=== PATIENT | female | born 2000 | race Hispanic/Latino ===

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

== ENCOUNTER 2020-04-03 12:52 | Emergency (ER) | payer OTHER ==
[2020-04-03 13:44] LABS: ALT (SGPT) 24 U/L (8-55); AST (SGOT) 18 U/L (5-30); Albumin 4.4 g/dL (3.5-5.0); Alkaline Phosphatase 108 U/L (40-100); Anion Gap 18 mmol/L (10-20); BUN (Urea Nitrogen) 14 mg/dL (8.4-21.0); Bilirubin, Total 0.4 mg/dL (0.2-1.2); Calc. Creatinine Clearance 0 mL/min (70-130); Calcium 9.4 mg/dL (7.8-10.44); Carbon Dioxide 20 mmol/L (22-29); Chloride 100 mmol/L (98-107); Globulin 4.1 g/dL (2.4-3.5); Glucose 326 mg/dL (70-105); Lipase 23 U/L (8-78); Potassium 3.9 mmol/L (3.5-5.1); Protein, Total 8.5 g/dL (6.0-8.3); Sodium 134 mmol/L (136-145)
[2020-04-03 14:06] LABS: #Basophils 0.1 thou/uL (0.0-0.2); #Eosinphils 0.1 thou/uL (0.0-0.7); #Lymphocytes 3.9 thou/uL (1.20-3.40); #Neutrophils 9.8 thou/uL (1.40-6.50); %Basophils 0.9 % (0.0-1.0); %Eosinophils 0.7 % (0.0-10.0); %Lymphocytes 26.2 % (28.0-48.0); %Monocytes 6.6 % (0.0-4.0); %Neutrophils 65.5 % (31.0-61.0); Mean Corpuscular HGB CONC 34.3 g/dL (32.0-36.0); Mean Corpuscular Hemoglobin 29.2 pg (25.0-35.0); Mean Platelet Volume 8.9 fL (7.4-10.4); Platelet Count 348 thou/uL (130-400); RBC Distribution Width 11.7 % (11.5-14.5); Red Blood Cell (RBC) Count 5.49 mill/uL (4.00-5.20); White Blood Cell (WBC) Count 14.9 thou/uL (4.8-10.8)
[2020-04-03 14:06] LABS: Bilirubin Negative (Negative); Blood, Urine Negative (Negative); Clarity Turbid (Clear); Glucose, Urine (Dipstick) Greater than 1000 mg/dL (Negative); Ketone, Urine Greater than 150 mg/dL (Negative); Leukocyte 75 Leu/uL (Negative); Nitrite Negative (Negative); Protein, Urine (Dipstick) 100 mg/dL (Neg-Trace); Specific Gravity, Urine 1.049 (1.002-1.036); Urobilinogen Normal mg/dL (Less than 2); pH, Urine 5.5 (5.0-9.0)
[2020-04-03 14:17] LABS: RBC/HPF 0-3 HPF (0-3)
[2020-04-03 14:18] LABS: Bacteria/HPF 2+ HPF (None Seen); Yeast-Budding 2+ HPF (None Seen)
[2020-04-03 14:19] LABS: BHCG - Serum Negative (NEGATIVE); Pregs Control Background? CLEAR/WHITE (CLR/WHITE); Pregs Control Bar Appear? YES (CONTROL BAR)
--- NOTE | 2020-04-03 15:09 | ULT ---
Exam: Right upper quadrant ultrasound: HISTORY: Right upper quadrant abdominal pain COMPARISON: None FINDINGS: Liver: Within normal limits Gallbladder: No evidence of gallbladder calculi, gallbladder wall thickening, or pericholecystic flui d. Common bile duct: The common duct is normal in caliber measuring 0.47 in diameter. Pancreas: Limited visualized portions of the pancreas demonstrate a normal sonographic appearance. Right kidney: Right kidney demonstrates a normal sonographic appearance. The right kidney measures 1 3.4 cm in length. IVC: The visualized IVC demonstrates a normal sonographic appearance. IMPRESSION: Right upper quadrant ultrasound is within normal limits, and no gallbladder calculi are seen.
[2020-04-03] MEDS ORDERED: cefTRIAXone\\ROCEPHIN 1 GM VIAL ONE (15:29)
[2020-04-03] MEDS ORDERED: Morphine 4 MG/ML VIAL ONE (15:29)
--- NOTE | 2020-04-03 16:34 | CT ---
EXAM: CT ABDOMEN AND PELVIS HISTORY: Abdominal pain. Nausea vomiting and diarrhea. COMPARISON: None. Procedure: Multiple contiguous axial images were obtained and a CT of the abdomen and pelvis with IV contrast. C oronal reformats were performed. FINDINGS: Lower Chest: Dependent atelectatic change Vessels: Normal caliber aorta. No periaortic fat stranding Heart: Normal heart size. No significant pericardial fluid Abdomen: Portal vein:Patent Gallbladder: No calcified gallstones. Normal caliber wall. Liver: within normal limits. Pancreas: within normal limits. Spleen: within normal limits. Adrenals: within normal limits. Kidneys: Symmetric enhancement. No obstructive uropathy. Peritoneum: No ascites or free air, no fluid collection. Bowel: Limited evaluation due to the lack of oral contrast administration. No evidence of bowel obstr uction. Ileocecal junction is unremarkable. Normal caliber retrocecal appendix. Scattered fecal material in a nondistended, nondilated colon. Mesentery and Retroperitoneum: No enlarged mesenteric or retroperitoneal lymph nodes. Abdominal Wall: within normal limits. Pelvis: Reproductive Organs: Uterus and left adnexa is unremarkable. 1.8 x 1.0 cm hypodensity in the right ad nexa, compatible with a adnexal cyst. Pelvis: No mass, lymphadenopathy, free air or free fluid. Bladder: within normal limits. Bones: No lytic or blastic lesions. 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 IMPRESSION: 1. No acute abnormality in the abdomen or pelvis 2. Normal caliber retrocecal appendix 3. Right ovarian cyst. Follow-up ultrasound in 8 weeks to ensure resolution.
[2020-04-03] MEDS ORDERED: Ketorolac Tromethamine 30 MG/ML VIAL ONE (16:44)
[2020-04-03] MEDS ORDERED: Acetaminophen 325 MG TAB ONE (18:01)
== END 2020-04-03 18:10 | disposition home or self-care (01) ==
LOC: ERS 12:52
DX: N10 Acute pyelonephritis (principal); E10.9 Type 1 diabetes mellitus without complications
CPT/HCPCS: 36415; 74177; 76705; 80053; 81003; 81015; 83605; 83690; 84703; 85025; 87040; 87086; 94760; 96365; 96375; J0696; J1885; J2270

== ENCOUNTER 2022-05-05 12:26 | Emergency (ER) | payer OTHER ==
[2022-05-05] MEDS ORDERED: Lidocaine 1% w/Epinephrine 1:100K 20 ML VIAL ONE (15:27)
[2022-05-05] MEDS ORDERED: HYDROcodone/Acetaminophen 10/325 mg Tablet ONE (15:37)
== END 2022-05-05 16:06 | disposition home or self-care (01) ==
LOC: ERS 12:26
DX: R05.9 Cough, unspecified (principal); L02.91 Cutaneous abscess, unspecified; E10.9 Type 1 diabetes mellitus without complications
CPT/HCPCS: 10060; 93005

== ENCOUNTER 2022-05-17 08:59 | Inpatient (IN) | payer OTHER ==
[2022-05-17] MEDS ORDERED: Iopamidol-370 76% 500 ML 1 ML ONE (09:34)
[2022-05-17] MEDS ORDERED: Ketorolac Tromethamine 30 MG/ML VIAL ONE ×2 (11:35→20:57)
[2022-05-17 11:46] LABS: Hemoglobin 14.7 g/dL (12.0-16.0); Mean Corpuscular HGB CONC 33.6 g/dL (32.0-36.0); Mean Corpuscular Hemoglobin 29.7 pg (27.0-31.0); Mean Corpuscular Volume 88.4 fl (78.0-98.0); Mean Platelet Volume 9.7 fL (7.4-10.4); Platelet Count 327 10x3/uL (130-400); RBC Distribution Width 11.7 % (11.5-14.5); Red Blood Cell (RBC) Count 4.94 mill/uL (4.20-5.40); White Blood Cell (WBC) Count 22.9 10x3/uL (4.8-10.8)
[2022-05-17 11:57] LABS: ALT (SGPT) 12 U/L (8-55); AST (SGOT) 11 U/L (5-34); Albumin 4.1 g/dL (3.5-5.0); Alkaline Phosphatase 102 U/L (40-110); Anion Gap 20 mmol/L (10-20); BHCG - Serum Negative (NEGATIVE); BUN (Urea Nitrogen) 9 mg/dL (7.0-18.7); Bilirubin, Total 0.3 mg/dL (0.2-1.2); Calc. Creatinine Clearance 0 mL/min (70-130); Calcium 9.7 mg/dL (7.8-10.44); Carbon Dioxide 14 mmol/L (22-29); Chloride 105 mmol/L (98-107); Estimated GFR 128; Globulin 4.1 g/dL (2.4-3.5); Glucose 359 mg/dL (70-105); Potassium 3.7 mmol/L (3.5-5.1); Pregs Control Background? CLEAR/WHITE (CLR/WHITE); Pregs Control Bar Appear? YES (CONTROL BAR); Protein, Total 8.2 g/dL (6.0-8.3); Sodium 135 mmol/L (136-145)
[2022-05-17 12:04] LABS: Bilirubin Negative (Negative); Blood, Urine Negative (Negative); Clarity Clear (Clear); Glucose, Urine (Dipstick) Greater than 1000 mg/dL (Negative); Ketone, Urine Greater than 150 mg/dL (Negative); Leukocyte 250 Leu/uL (Negative); Nitrite Negative (Negative); Protein, Urine (Dipstick) 30 mg/dL (Neg-Trace); Specific Gravity, Urine 1.038 (1.002-1.036); Squamous Epithelial 0-3 HPF (0-3); Urobilinogen Normal mg/dL (Less than 2); Yeast-Budding 2+ HPF (None Seen); pH, Urine 5.5 (5.0-9.0)
[2022-05-17 12:17] LABS: Bacteria/HPF 1+ HPF (None Seen); RBC/HPF 0-3 HPF (0-3)
[2022-05-17 12:34] LABS: Band 9 % (5-11); Lymphocytes 25 % (21-51); MDiff Complete? YES; Monocytes 6 % (0-10); Neutrophil 60 % (42-75); RBC Morphology Normal
[2022-05-17] MEDS ORDERED: Cefepime 1 GM VIAL ONE (12:48)
[2022-05-17] MEDS ORDERED: Cefepime 2 GM VIAL ONE (12:50)
[2022-05-17] MEDS ORDERED: Vancomycin 1 GM/200 ML (FROZEN) BAG ONE (13:26)
[2022-05-17] MEDS ORDERED: Senokot S 8.6-50 MG TAB PO PRN (15:17)
[2022-05-17] MEDS ORDERED: Moisturizing Cream (Eucerin) 113 GM JAR TOP PRN (15:17)
[2022-05-17] MEDS ORDERED: diphenhydrAMINE 50 MG/ML VIAL IVP PRN (15:17)
[2022-05-17] MEDS ORDERED: Acetaminophen 650 MG Suppository PR PRN (15:17)
[2022-05-17] MEDS ORDERED: Cepastat Lozenges 1 LOZ PO PRN (15:17)
[2022-05-17] MEDS ORDERED: Ondansetron PF 4 MG/2 ML Vial IVP PRN (15:17)
[2022-05-17] MEDS ORDERED: [UNRECOGNIZED DRUG - OTHER] FS SCH (15:17)
[2022-05-17] MEDS ORDERED: Sodium Chloride 0.65% Nasal 44 ML BOT EA NARE PRN (15:17)
[2022-05-17] MEDS ORDERED: diphenhydrAMINE 25 MG CAP PO PRN (15:17)
[2022-05-17] MEDS ORDERED: Artificial Tear Sol 15 ML BOT EA EYE PRN (15:17)
[2022-05-17] MEDS ORDERED: Bisacodyl 5 MG TAB PO PRN (15:17)
[2022-05-17] MEDS ORDERED: Dextrose 50% Abboject 50 ML SYRINGE SLOW IVP PRN (15:23)
[2022-05-17] MEDS ORDERED: Dextrose 5% in Water 1,000 ML IV PRN (15:23)
[2022-05-17] MEDS ORDERED: Ondansetron PF 4 MG/2 ML Vial ONE (15:25)
[2022-05-17] MEDS ORDERED: Morphine 4 MG/ML VIAL ONE ×2 (15:25→22:32)
[2022-05-17] MEDS ORDERED: Lidocaine 1% PF 5 ML VIAL ONE ×2 (15:25→15:26)
[2022-05-17] MEDS ORDERED: NPH, Human Insulin Isophane 300 UNIT/3 ML VIAL SC SCH (15:30)
[2022-05-17] MEDS ORDERED: FENTANYL 50 MCG/ML 1 ML VIAL ONE (15:46)
[2022-05-17] MEDS ORDERED: Fentanyl 100 MCG/2 ML VIAL ONE (15:47)
[2022-05-17] MEDS ORDERED: Piperacillin/Tazobactam 3.375 GM in Sodium Chloride 0.9% 100 ML IVPB SCH (16:00)
[2022-05-17] MEDS ORDERED: Lactated Ringer's 1,000 ML IV SCH (16:45)
[2022-05-17] MEDS ORDERED: Fluconazole 100 MG TAB PO SCH (17:00)
[2022-05-17] MEDS: Lactated Ringer's 1,000 ML IV SCH (17:03)
[2022-05-17 17:11] LABS: HIV (1/2) Antibody/Antigen Non-Reactive (NonReactive); HIV 1/2 INDEX 0.36 S/CO (<1.00)
[2022-05-17] MEDS ORDERED: Piperacillin/Tazobactam 3.375 GM VIAL ONE ×2 (17:33→20:57)
[2022-05-17] MEDS ORDERED: Insulin NPH Human Isophane 100 UNIT/ML (10 ML VIAL) SC SCH (17:45)
[2022-05-17] MEDS: Piperacillin/Tazobactam 3.375 GM in Sodium Chloride 0.9% 100 ML IVPB SCH (20:52)
[2022-05-17] MEDS: Doxycycline 100 MG in Sodium Chloride 0.9% 100 ML IVPB SCH (22:17)
[2022-05-17] MEDS: Morphine 2 MG/ML VIAL SLOW IVP PRN (22:39)
[2022-05-17] MEDS: Insulin NPH Human Isophane 100 UNIT/ML (10 ML VIAL) SC SCH (22:43)
[2022-05-18] MEDS ORDERED: Morphine 2 MG/ML VIAL ONE ×3 (03:06→12:21)
[2022-05-18] MEDS: Morphine 2 MG/ML VIAL SLOW IVP PRN ×3 (03:11→12:33)
[2022-05-18] MEDS: Lactated Ringer's 1,000 ML IV SCH ×2 (03:46→16:16)
[2022-05-18] MEDS: Piperacillin/Tazobactam 3.375 GM in Sodium Chloride 0.9% 100 ML IVPB SCH ×3 (04:09→19:37)
[2022-05-18] MEDS ORDERED: Piperacillin/Tazobactam 3.375 GM VIAL ONE ×2 (04:16→12:02)
[2022-05-18 07:46] LABS: Hemoglobin A1c Greater than 14.0 % (4.0-6.0)
[2022-05-18 07:47] LABS: #Eosinphils 0.1 thou/uL (0.0-0.7); #Monocytes 1.2 thou/uL (0.11-0.59); #Neutrophils 9.5 thou/uL (1.40-6.50); %Basophils 0.2 % (0.0-1.0); %Eosinophils 0.6 % (0.0-10.0); %Lymphocytes 21.7 % (21.0-51.0); %Monocytes 8.5 % (0.0-10.0); %Neutrophils 68.9 % (42.0-75.0); Hemoglobin 11.5 g/dL (12.0-16.0); Mean Corpuscular HGB CONC 33.7 g/dL (32.0-36.0); Mean Platelet Volume 8.8 fL (7.4-10.4); Platelet Count 291 10x3/uL (130-400); RBC Distribution Width 11.6 % (11.5-14.5); Red Blood Cell (RBC) Count 3.84 mill/uL (4.20-5.40); White Blood Cell (WBC) Count 13.7 10x3/uL (4.8-10.8)
[2022-05-18] MEDS ORDERED: NPH, Human Insulin Isophane 300 UNIT/3 ML VIAL SC SCH (09:00)
[2022-05-18 09:01] LABS: Albumin 2.9 g/dL (3.5-5.0)
[2022-05-18 09:02] LABS: Calcium 8.4 mg/dL (7.8-10.44); Chloride 108 mmol/L (98-107); Potassium 3.1 mmol/L (3.5-5.1); Sodium 137 mmol/L (136-145)
[2022-05-18 09:03] LABS: Globulin 3.1 g/dL (2.4-3.5); Glucose 229 mg/dL (70-105)
[2022-05-18 09:04] LABS: Anion Gap 14 mmol/L (10-20); Carbon Dioxide 18 mmol/L (22-29)
[2022-05-18 09:05] LABS: Bilirubin, Total 0.3 mg/dL (0.2-1.2)
[2022-05-18 09:06] LABS: Alkaline Phosphatase 65 U/L (40-110)
[2022-05-18 09:07] LABS: BUN (Urea Nitrogen) 8 mg/dL (7.0-18.7); Calc. Creatinine Clearance 0 mL/min (70-130); Estimated GFR 134
[2022-05-18 09:08] LABS: AST (SGOT) 7 U/L (5-34)
[2022-05-18 09:09] LABS: ALT (SGPT) 8 U/L (8-55)
[2022-05-18] MEDS: Insulin NPH Human Isophane 100 UNIT/ML (10 ML VIAL) SC SCH ×3 (09:31→20:03)
[2022-05-18] MEDS: Doxycycline 100 MG in Sodium Chloride 0.9% 100 ML IVPB SCH ×2 (10:10→21:05)
[2022-05-18] MEDS ORDERED: Electrolyte Replacement Protocol FS SCH (11:45)
[2022-05-18] MEDS: Potassium Chloride 20 MEQ TAB PO SCH ×3 (15:15→21:07)
[2022-05-18] MEDS: Acetaminophen 325 MG TAB PO PRN (15:39)
[2022-05-18 15:51] VITALS: BMI 28.3
[2022-05-18] MEDS: HumaLOG 300 UNITS/3 ML VIAL SC PRN ×2 (18:46→20:04)
[2022-05-18 19:08] LABS: Bilirubin Negative (Negative); Blood, Urine Negative (Negative); Clarity Clear (Clear); Glucose, Urine (Dipstick) Greater than 1000 mg/dL (Negative); Ketone, Urine 150 mg/dL (Negative); Leukocyte 75 Leu/uL (Negative); Mucous/LPF Rare LPF (<2+); Nitrite Negative (Negative); Protein, Urine (Dipstick) 20 mg/dL (Neg-Trace); RBC/HPF 0-3 HPF (0-3); Specific Gravity, Urine 1.036 (1.002-1.036); Squamous Epithelial 0-3 HPF (0-3); Urobilinogen Normal mg/dL (Less than 2); Yeast-Budding 2+ HPF (None Seen); pH, Urine 5.5 (5.0-9.0)
[2022-05-18 19:24] LABS: Bacteria/HPF None Seen HPF (None Seen)
[2022-05-18] MEDS: Ketorolac Tromethamine 30 MG/ML VIAL IVP PRN (19:55)
[2022-05-18 23:43] LABS: Chlam.trachomatis by PCR,Urine Not Detected (NotDetected); GC N.gonorrhoeae PCR,UrineVOID Not Detected (NotDetected)
[2022-05-19] MEDS: Piperacillin/Tazobactam 3.375 GM in Sodium Chloride 0.9% 100 ML IVPB SCH (03:56)
[2022-05-19] MEDS: Clindamycin 150 MG CAP PO SCH ×2 (09:00→16:48)
[2022-05-19] MEDS: Insulin NPH Human Isophane 100 UNIT/ML (10 ML VIAL) SC SCH ×2 (09:00→20:49)
[2022-05-19] MEDS ORDERED: Electrolyte Replacement Protocol 1 EACH FS SCH (09:15)
[2022-05-19 09:52] LABS: #Basophils 0.1 thou/uL (0.0-0.2); #Eosinphils 0.1 thou/uL (0.0-0.7); #Lymphocytes 2.8 thou/uL (1.20-3.40); #Monocytes 0.7 thou/uL (0.11-0.59); %Basophils 0.5 % (0.0-1.0); %Eosinophils 0.9 % (0.0-10.0); %Lymphocytes 29.3 % (21.0-51.0); %Neutrophils 62.2 % (42.0-75.0); Mean Corpuscular Hemoglobin 30.3 pg (27.0-31.0); Mean Platelet Volume 9.3 fL (7.4-10.4); Platelet Count 299 10x3/uL (130-400); RBC Distribution Width 11.8 % (11.5-14.5); Red Blood Cell (RBC) Count 3.95 mill/uL (4.20-5.40); White Blood Cell (WBC) Count 9.6 10x3/uL (4.8-10.8)
[2022-05-19 10:04] LABS: Anion Gap 15 mmol/L (10-20); BUN (Urea Nitrogen) 11 mg/dL (7.0-18.7); Calc. Creatinine Clearance 177 mL/min (70-130); Calcium 8.8 mg/dL (7.8-10.44); Carbon Dioxide 19 mmol/L (22-29); Chloride 110 mmol/L (98-107); Estimated GFR 134; Glucose 225 mg/dL (70-105); Potassium 3.6 mmol/L (3.5-5.1); Sodium 140 mmol/L (136-145)
[2022-05-19] MEDS: Ondansetron ODT 4 MG TAB PO PRN (10:23)
[2022-05-19] MEDS: Ketorolac Tromethamine 30 MG/ML VIAL IVP PRN (10:29)
[2022-05-19] MEDS: HumaLOG 300 UNITS/3 ML VIAL SC PRN ×3 (12:07→20:50)
[2022-05-19] MEDS: HYDROcodone/Acetaminophen 5/325 mg Tablet PO PRN ×2 (16:48→20:50)
[2022-05-20] MEDS: Clindamycin 150 MG CAP PO SCH ×3 (00:03→16:21)
[2022-05-20] MEDS: HumaLOG 300 UNITS/3 ML VIAL SC PRN ×3 (00:04→20:34)
[2022-05-20] MEDS: Insulin NPH Human Isophane 100 UNIT/ML (10 ML VIAL) SC SCH ×2 (07:38→20:33)
[2022-05-20 07:57] LABS: #Eosinphils 0.1 thou/uL (0.0-0.7); #Monocytes 0.7 thou/uL (0.11-0.59); #Neutrophils 5.6 thou/uL (1.40-6.50); %Basophils 0.4 % (0.0-1.0); %Lymphocytes 32.1 % (21.0-51.0); %Monocytes 7.5 % (0.0-10.0); Hemoglobin 12.7 g/dL (12.0-16.0); Mean Corpuscular Volume 88.3 fl (78.0-98.0); Mean Platelet Volume 8.9 fL (7.4-10.4); Platelet Count 370 10x3/uL (130-400); RBC Distribution Width 11.6 % (11.5-14.5); Red Blood Cell (RBC) Count 4.25 mill/uL (4.20-5.40); White Blood Cell (WBC) Count 9.5 10x3/uL (4.8-10.8)
[2022-05-20] MEDS ORDERED: Lactated Ringer's 1,000 ML IV SCH (08:00)
[2022-05-20 08:19] LABS: Anion Gap 15 mmol/L (10-20); BUN (Urea Nitrogen) 16 mg/dL (7.0-18.7); Calc. Creatinine Clearance 162 mL/min (70-130); Carbon Dioxide 20 mmol/L (22-29); Chloride 108 mmol/L (98-107); Estimated GFR 131; Glucose 230 mg/dL (70-105); Potassium 3.7 mmol/L (3.5-5.1); Sodium 139 mmol/L (136-145)
[2022-05-20] MEDS ORDERED: fentaNYL PF 100 MCG/2 ML SYRINGE ONE (14:03)
[2022-05-20] MEDS ORDERED: Dexamethasone 20 MG/5 ML VIAL ONE (14:29)
[2022-05-20] MEDS ORDERED: Lidocaine 1% PF 5 ML VIAL ONE (14:29)
[2022-05-20] MEDS ORDERED: Ondansetron PF 4 MG/2 ML Vial ONE (14:29)
[2022-05-20] MEDS ORDERED: PROPOFOL 200 MG/20 ML VIAL ONE (14:29)
[2022-05-20] MEDS ORDERED: Clindamycin/D5W 600 mg/50 ml Premix Bag ONE (14:30)
[2022-05-20] MEDS ORDERED: Bupivacaine HCl 0.5%/Epinephrine 1:200,000/PF 30 ml Vial ONE (14:47)
[2022-05-20] MEDS ORDERED: Ondansetron HCl/PF 4 MG/2 ML Vial IVP PRN (15:04)
[2022-05-20] MEDS ORDERED: Promethazine HCl 25 MG/ML VIAL IM PRN (15:04)
[2022-05-20] MEDS ORDERED: Fentanyl 100 MCG/2 ML VIAL ONE (15:31)
[2022-05-20] MEDS ORDERED: Fluconazole 100 MG TAB PO SCH (17:45)
[2022-05-20] MEDS: HYDROcodone/Acetaminophen 5/325 mg Tablet PO PRN (19:05)
[2022-05-21] MEDS: Clindamycin 150 MG CAP PO SCH ×2 (00:13→08:58)
[2022-05-21] MEDS: HumaLOG 300 UNITS/3 ML VIAL SC PRN ×3 (00:18→13:29)
[2022-05-21 07:04] LABS: #Eosinphils 0.1 thou/uL (0.0-0.7); #Lymphocytes 2.8 thou/uL (1.20-3.40); #Neutrophils 9.5 thou/uL (1.40-6.50); %Basophils 0.3 % (0.0-1.0); %Eosinophils 0.4 % (0.0-10.0); %Lymphocytes 20.6 % (21.0-51.0); %Monocytes 7.2 % (0.0-10.0); %Neutrophils 71.5 % (42.0-75.0); Hemoglobin 13.3 g/dL (12.0-16.0); Mean Corpuscular HGB CONC 33.6 g/dL (32.0-36.0); Mean Corpuscular Volume 89.2 fl (78.0-98.0); Mean Platelet Volume 8.8 fL (7.4-10.4); Platelet Count 409 10x3/uL (130-400); RBC Distribution Width 11.6 % (11.5-14.5); Red Blood Cell (RBC) Count 4.42 mill/uL (4.20-5.40); White Blood Cell (WBC) Count 13.3 10x3/uL (4.8-10.8)
[2022-05-21 07:27] LABS: Anion Gap 13 mmol/L (10-20); BUN (Urea Nitrogen) 11 mg/dL (7.0-18.7); Calc. Creatinine Clearance 152 mL/min (70-130); Calcium 9.1 mg/dL (7.8-10.44); Carbon Dioxide 22 mmol/L (22-29); Chloride 104 mmol/L (98-107); Estimated GFR 129; Glucose 276 mg/dL (70-105); Potassium 3.9 mmol/L (3.5-5.1); Sodium 135 mmol/L (136-145)
[2022-05-21] MEDS ORDERED: Fluconazole 100 MG TAB PO SCH (09:00)
[2022-05-21] MEDS: Insulin NPH Human Isophane 100 UNIT/ML (10 ML VIAL) SC SCH (09:19)
[2022-05-21] MEDS: Acetaminophen 325 MG TAB PO PRN (10:12)
[2022-05-21] MEDS: Ondansetron ODT 4 MG TAB PO PRN (10:13)
[2022-05-21] MEDS: Morphine 2 MG/ML VIAL SLOW IVP PRN (11:45)
[2022-05-21 13:37] VITALS: BP 108/75; TEMP 98.1
== END 2022-05-21 14:10 | disposition home or self-care (01) | DRG 854 ==
LOC: ERS 08:59 → ERHOLD 14:27 → T4-A 14:27 → OBSVTOIN 15:17 → T4-A 05-18 15:02
PROVIDERS: ADMIT Family Medicine; ATTEND Family Medicine
PROC: 3E03329 Introduction of Other Anti-infective into Peripheral Vein, Percutaneous Approach (ICD-10-PCS; principal; 2022-05-17)
PROC: 0U9MXZZ Drainage of Vulva, External Approach (ICD-10-PCS; 2022-05-17)
PROC: 0H99XZZ Drainage of Perineum Skin, External Approach (ICD-10-PCS; 2022-05-20)
DX: A41.9 Sepsis, unspecified organism (principal); E87.29 Other acidosis; N76.4 Abscess of vulva; L02.811 Cutaneous abscess of head [any part, except face]; F41.9 Anxiety disorder, unspecified; B37.31 Acute candidiasis of vulva and vagina; N76.2 Acute vulvitis; N32.89 Other specified disorders of bladder; E10.65 Type 1 diabetes mellitus with hyperglycemia; Z20.822 Contact with and (suspected) exposure to COVID-19; Z79.899 Other long term (current) drug therapy; Z98.890 Other specified postprocedural states; Z79.4 Long term (current) use of insulin; Z88.1 Allergy status to other antibiotic agents; Z83.3 Family history of diabetes mellitus; F32.A Depression, unspecified; Z84.1 Family history of disorders of kidney and ureter; Z91.14 Patient's other noncompliance with medication regimen; Z90.89 Acquired absence of other organs
CPT/HCPCS: 36415; 36416; 74177; 76856; 76999; 80048; 80053; 81001; 81003; 81015; 82010; 83036; 83605; 84145; 84703; 85025; 87040; 87070; 87077; 87086; 87205; 87389; 87491; 87591; 93976; 97139; J0692; J1100; J1650; J1815; J1885; J2270; J2272; J2405; J2543; J2704; J3010; J3370-JW; J3490; J7120; Q0162; Q9967; U0003; U0005

== ENCOUNTER 2022-09-25 10:02 | Emergency (ER) | payer OTHER ==
[2022-09-25] MEDS ORDERED: HYDROcodone/Acetaminophen 5/325 mg Tablet ONE (11:30)
[2022-09-25] MEDS ORDERED: Cephalexin 250 MG CAP ONE (11:31)
[2022-09-25] MEDS ORDERED: Sulfameth/Trimethoprim DS 800-160mg TAB ONE (11:31)
[2022-09-25] MEDS ORDERED: Lidocaine 4% Cream 5 GM TUBE w/ Tegaderm ONE (11:31)
[2022-09-25] MEDS ORDERED: Lidocaine 1% w/Epinephrine 1:100K 20 ML VIAL ONE (12:24)
[2022-09-25] MEDS ORDERED: Triple Antibiotic Oint 1 GM Packet ONE (13:02)
[2022-09-25] MEDS ORDERED: Ibuprofen 800 MG TAB ONE (13:02)
== END 2022-09-25 13:34 | disposition home or self-care (01) ==
LOC: ERS 10:02
DX: L02.214 Cutaneous abscess of groin (principal); L03.314 Cellulitis of groin; E10.9 Type 1 diabetes mellitus without complications
CPT/HCPCS: 10060

== ENCOUNTER 2022-10-17 22:27 | Observation (INO) | payer OTHER ==
[2022-10-17 23:09] LABS: #Eosinphils 0.1 thou/uL (0.0-0.7); #Monocytes 1.2 thou/uL (0.11-0.59); #Neutrophils 11.5 thou/uL (1.40-6.50); %Basophils 0.3 % (0.0-1.0); %Eosinophils 0.6 % (0.0-10.0); %Monocytes 7.9 % (0.0-10.0); %Neutrophils 72.8 % (42.0-75.0); Hematocrit 38.6 % (36.0-47.0); Hemoglobin 13.3 g/dL (12.0-16.0); Mean Corpuscular HGB CONC 34.5 g/dL (32.0-36.0); Mean Corpuscular Hemoglobin 28.6 pg (27.0-31.0); Mean Platelet Volume 11.1 fL (7.4-10.4); Platelet Count 280 10x3/uL (130-400); RBC Distribution Width 12.7 % (11.5-14.5); Red Blood Cell (RBC) Count 4.65 mill/uL (4.20-5.40); White Blood Cell (WBC) Count 15.8 10x3/uL (4.8-10.8)
[2022-10-17] MEDS ORDERED: Lidocaine 1% w/Epinephrine 1:100K 20 ML VIAL ONE (23:10)
[2022-10-17] MEDS ORDERED: HYDROcodone/Acetaminophen 5/325 mg Tablet ONE (23:16)
[2022-10-17 23:29] LABS: Anion Gap 15 mmol/L (10-20); BUN (Urea Nitrogen) 10 mg/dL (7.0-18.7); Calc. Creatinine Clearance 0 mL/min (70-130); Calcium 9.2 mg/dL (7.8-10.44); Carbon Dioxide 20 mmol/L (22-29); Chloride 100 mmol/L (98-107); Estimated GFR 114; Potassium 4.1 mmol/L (3.5-5.1); Sodium 131 mmol/L (136-145)
[2022-10-17 23:36] LABS: Glucose 506 mg/dL (70-105)
[2022-10-17] MEDS ORDERED: Boostrix 0.5 ML (Tdap) VIAL (>/=7 yrs of age) ONE (23:44)
[2022-10-17] MEDS ORDERED: cefTRIAXone (ROCEPHIN) 1 GM VIAL ONE (23:53)
[2022-10-18 01:22] LABS: Actual Bicarbonate (HCO3v) 22.1 mEq/L (22-28); Chloride (VBG) 100 mmol/L (98-106); Hematocrit-VBG 40 % (36.0-47.0); Hemoglobin (Hb) 13.7 g/dL (11.7-15.5); Potassium (VBG) 4.46 mmol/L (3.70-5.30); Sodium 128.6 mmol/L (133-146); pH (venous) 7.406 (7.32-7.43)
[2022-10-18] MEDS ORDERED: Insulin Regular 300 UNITS/3 ML VIAL ONE (01:47)
[2022-10-18] MEDS ORDERED: Dextrose 50% Abboject 50 ML SYRINGE SLOW IVP PRN (02:13)
[2022-10-18] MEDS ORDERED: Dextrose 5% in Water 1,000 ML IV PRN (02:13)
[2022-10-18] MEDS ORDERED: Glucagon 1 MG/ML KIT IM PRN (02:13)
[2022-10-18] MEDS ORDERED: HumaLOG 300 UNITS/3 ML VIAL SC PRN ×2 (02:13)
[2022-10-18] MEDS ORDERED: Ondansetron ODT 4 MG TAB PO PRN (02:14)
[2022-10-18] MEDS ORDERED: Calcium Carbonate 500 MG ChewTAB PO PRN (02:14)
[2022-10-18] MEDS ORDERED: Lactated Ringer's 1,000 ML IV SCH (02:30)
[2022-10-18 03:17] VITALS: BMI 28.6
[2022-10-18] MEDS: Acetaminophen 325 MG TAB PO PRN ×2 (03:40→11:45)
[2022-10-18 07:31] LABS: #Eosinphils 0.1 thou/uL (0.0-0.7); #Monocytes 1.2 thou/uL (0.11-0.59); #Neutrophils 10.1 thou/uL (1.40-6.50); %Basophils 0.2 % (0.0-1.0); %Eosinophils 0.6 % (0.0-10.0); %Lymphocytes 21.8 % (21.0-51.0); %Monocytes 8.3 % (0.0-10.0); %Neutrophils 68.6 % (42.0-75.0); Hematocrit 35.3 % (36.0-47.0); Hemoglobin 11.7 g/dL (12.0-16.0); Mean Corpuscular HGB CONC 33.1 g/dL (32.0-36.0); Mean Corpuscular Hemoglobin 28.5 pg (27.0-31.0); Mean Platelet Volume 11.4 fL (7.4-10.4); Platelet Count 266 10x3/uL (130-400); RBC Distribution Width 12.8 % (11.5-14.5); Red Blood Cell (RBC) Count 4.11 mill/uL (4.20-5.40); White Blood Cell (WBC) Count 14.7 10x3/uL (4.8-10.8)
[2022-10-18 07:43] LABS: Mean Corpuscular Volume 85.9 fl (78.0-98.0)
[2022-10-18 07:48] VITALS: TEMP 98.3
[2022-10-18 08:02] LABS: Anion Gap 9 mmol/L (10-20); BUN (Urea Nitrogen) 9 mg/dL (7.0-18.7); Calc. Creatinine Clearance 150 mL/min (70-130); Calcium 8.6 mg/dL (7.8-10.44); Carbon Dioxide 23 mmol/L (22-29); Chloride 104 mmol/L (98-107); Estimated GFR 128; Glucose 315 mg/dL (70-105); Potassium 3.4 mmol/L (3.5-5.1); Sodium 133 mmol/L (136-145)
[2022-10-18] MEDS ORDERED: Potassium Chloride 20 MEQ TAB PO SCH (08:30)
[2022-10-18] MEDS ORDERED: Escitalopram Oxalate 10 mg Tablet PO SCH (09:00)
[2022-10-18] MEDS ORDERED: Famotidine 20 MG TAB PO SCH (09:00)
[2022-10-18] MEDS ORDERED: Insulin NPH Human Isophane 100 UNITS/ML (10 ML VIAL) SC SCH ×2 (09:00→21:00)
[2022-10-18] MEDS ORDERED: Insulin Glargine 30 UNITS/0.3 ML VIAL SC SCH ×2 (09:00→21:00)
[2022-10-18] MEDS ORDERED: Doxycycline 100 MG CAP PO SCH (09:00)
[2022-10-18 12:37] VITALS: BP 108/72
[2022-10-19] MEDS ORDERED: metFORMIN 500 MG TAB PO SCH (08:00)
== END 2022-10-18 16:58 | disposition home or self-care (01) ==
LOC: ERS 22:27 → T4-B 10-18 01:31
PROVIDERS: ADMIT Student in an Organized Health Care Education/Training Program; ATTEND Emergency Medicine
DX: E10.10 Type 1 diabetes mellitus with ketoacidosis without coma (principal); L02.214 Cutaneous abscess of groin; Z79.891 Long term (current) use of opiate analgesic; Z79.4 Long term (current) use of insulin; Z79.84 Long term (current) use of oral hypoglycemic drugs; Z79.899 Other long term (current) drug therapy; Z90.89 Acquired absence of other organs; Z88.1 Allergy status to other antibiotic agents
CPT/HCPCS: 36415; 36416; 56405; 80048; 82010; 82805; 83605; 85025; 87040; 87070; 87077; 87205; 90471; 90715; 96361; 96365; 96375; G0378; J0696; J1815; J7120; Q0162

== ENCOUNTER 2024-12-07 15:03 | Emergency (ER) | payer OTHER ==
[2024-12-07] MEDS ORDERED: Ketorolac Tromethamine 30 MG (1 mL) VIAL ONE (15:51)
== END 2024-12-07 16:43 | disposition home or self-care (01) ==
LOC: ERS 15:03
DX: J06.9 Acute upper respiratory infection, unspecified (principal); H66.91 Otitis media, unspecified, right ear; E10.9 Type 1 diabetes mellitus without complications
CPT/HCPCS: 71045; 87428; 96372; J1885

== ENCOUNTER 2024-12-31 16:23 | Emergency (ER) | payer OTHER ==
[~2024-12-31 16:23] MED LIST: Iopamidol 370 76% 100 ML VIAL ONE
[2024-12-31] MEDS ORDERED: Ketorolac Tromethamine 30 MG (1 mL) VIAL ONE (19:09)
[2024-12-31] MEDS ORDERED: Ondansetron PF 4 MG/2 ML Vial ONE ×2 (19:09→20:27)
[2024-12-31 19:29] LABS: #Basophils 0.04 10x3/uL (0.0-0.2); #Eosinophils 0.08 10x3/uL (0.0-0.7); #Monocytes 1.42 10x3/uL (0.11-0.59); #Neutrophils 13.12 10x3/uL (1.40-6.50); %Basophils 0.2 % (0.0-1.0); %Eosinophils 0.5 % (0.0-10.0); %Lymphocytes 16.7 % (21.0-51.0); %Monocytes 8.0 % (0.0-10.0); %Neutrophils 74.1 % (42.0-75.0); Hematocrit 43.3 % (36.0-47.0); Hemoglobin 14.4 g/dL (12.0-16.0); Mean Corpuscular Hemoglobin 26.7 pg (27.0-31.0); Mean Corpuscular Volume 80.2 fL (78.0-98.0); Platelet Count 305 10x3/uL (130-400); Red Blood Cell (RBC) Count 5.40 mill/uL (4.20-5.40); White Blood Cell (WBC) Count 17.69 10x3/uL (4.8-10.8)
[2024-12-31 19:42] LABS: BHCG - Serum Negative (NEGATIVE); Pregs Control Background? CLEAR/WHITE (CLR/WHITE); Pregs Control Bar Appear? YES (CONTROL BAR)
[2024-12-31 19:45] LABS: INR-International Normal Ratio 0.9; Prothrombin Time 12.7 sec (12.0-14.7)
[2024-12-31 19:46] LABS: PTT 28.1 sec (22.9-36.1)
[2024-12-31 20:07] LABS: ALT (SGPT) 18 U/L (Less than 34); AST (SGOT) 20 U/L (11-34); Albumin 3.7 g/dL (3.1-4.5); Alkaline Phosphatase 115 U/L (40-110); Anion Gap 18 mmol/L (10-20); BUN (Urea Nitrogen) 14 mg/dL (7.0-18.7); Bilirubin, Total 0.3 mg/dL (0.3-1.2); Calc. Creatinine Clearance 0 mL/min (70-130); Calcium 10.0 mg/dL (7.8-10.44); Carbon Dioxide 24 mmol/L (22-29); Chloride 100 mmol/L (98-107); Globulin 4.5 g/dL (2.4-3.5); Glucose 476 mg/dL (70-105); Lipase 50 U/L (8-78); Magnesium 2.2 mg/dL (1.6-2.6); Potassium 4.5 mmol/L (3.5-5.1); Sodium 137 mmol/L (136-145)
[2024-12-31] MEDS ORDERED: cefTRIAXone (ROCEPHIN) 2 GM VIAL ONE (20:59)
[2024-12-31] MEDS ORDERED: Insulin Glargine 30 UNITS/0.3 ML VIAL ONE (21:25)
[2024-12-31] MEDS ORDERED: Acetaminophen 325 MG TAB ONE (21:25)
== END 2024-12-31 22:25 | disposition home or self-care (01) ==
LOC: ERS 16:23
DX: A41.9 Sepsis, unspecified organism (principal); J18.9 Pneumonia, unspecified organism; E10.9 Type 1 diabetes mellitus without complications
CPT/HCPCS: 36416; 71045; 71275; 80053; 82010; 83605; 83690; 83735; 84100; 84484; 84703; 85025; 85610; 85730; 87040; 87428; 93005; 94760; 96365; 96375; 96376; J0696; J1815; J1885; J2405; J3010; Q9967